=== PATIENT | female | born 1985 | race Caucasian/White ===

== ENCOUNTER → 2023-06-09 09:26 | Outpatient (REF) | payer OTHER, SELFPAY | LOC: PNTC 09:26 | PROVIDERS: ATTENDING PHYSICIAN Nurse Practitioner Family | DX: O36.80X0 Pregnancy with inconclusive fetal viability, not applicable or unspecified (principal) | CPT/HCPCS: 76801 ==

== ENCOUNTER → 2023-07-01 09:15 | Outpatient (REF) | payer OTHER, SELFPAY | LOC: PNTC 09:15 | PROVIDERS: ATTENDING PHYSICIAN Obstetrics & Gynecology | DX: Z36.0 Encounter for antenatal screening for chromosomal anomalies (principal) | CPT/HCPCS: 36415; 76801; 76813 ==

== ENCOUNTER → 2023-09-02 09:22 | Outpatient (REF) | payer OTHER, SELFPAY | LOC: PNTC 09:22 | PROVIDERS: ATTENDING PHYSICIAN Obstetrics & Gynecology | DX: O09.529 Supervision of elderly multigravida, unspecified trimester (principal) | CPT/HCPCS: 76811 ==

== ENCOUNTER → 2023-10-13 09:01 | Outpatient (REF) | payer OTHER, SELFPAY | LOC: PNTC 09:01 | PROVIDERS: ATTENDING PHYSICIAN Obstetrics & Gynecology | DX: O09.529 Supervision of elderly multigravida, unspecified trimester (principal) | CPT/HCPCS: 76816 ==

== ENCOUNTER → 2023-11-24 08:58 | Outpatient (REF) | payer OTHER, SELFPAY | LOC: PNTC 08:58 | PROVIDERS: ATTENDING PHYSICIAN Obstetrics & Gynecology | DX: O09.519 Supervision of elderly primigravida, unspecified trimester (principal) | CPT/HCPCS: 76816 ==

== ENCOUNTER → 2023-12-30 10:11 | Outpatient (REF) | payer OTHER, SELFPAY | LOC: PNTC 10:11 | PROVIDERS: ATTENDING PHYSICIAN Obstetrics & Gynecology | DX: O09.529 Supervision of elderly multigravida, unspecified trimester (principal); O36.8131 Decreased fetal movements, third trimester, fetus 1; O40.3XX0 Polyhydramnios, third trimester, not applicable or unspecified | CPT/HCPCS: 59025; 76815; 76816 ==

== ENCOUNTER → 2024-01-06 09:20 | Outpatient (REF) | payer OTHER, SELFPAY | LOC: PNTC 09:20 | PROVIDERS: ATTENDING PHYSICIAN Obstetrics & Gynecology | DX: O40.3XX0 Polyhydramnios, third trimester, not applicable or unspecified (principal) | CPT/HCPCS: 59025; 76815 ==

== ENCOUNTER 2024-01-07 19:22 | Inpatient (IN) | payer OTHER, SELFPAY ==
[2024-01-07 19:32] VITALS: BMI 40.4
[2024-01-07 20:15] VITALS: BP 122/76
[2024-01-07 20:15] LABS: % Basophils 0.1 % (0-2); % Eosinophils 0.7 % (0-6); % Immature Granulocytes 0.7 % (0-0.5); % Lymphocytes 18.6 % (20.5-51.1); % Monocytes 7.1 % (1.7-9.3); % Neutrophils 72.8 % (42.2-75.2); Absolute Eosinophils 0.1 10^3/uL (0-0.7); Absolute Immature Granulocytes 0.1 10^3/uL (0-0.05); Absolute Lymphocytes 1.6 10^3/uL (1.2-3.4); Absolute Monocytes 0.6 10^3/uL (0.1-0.6); Absolute Neutrophils 6.2 10^3/uL (1.4-6.5); Hematocrit 25.8 % (37.0-47.0); Hemoglobin 9.1 g/dL (12.0-16.0); Mean Corp Hgb Conc. 35.3 g/dL (33.0-37.0); Mean Corpuscular Hgb 28.8 pg (27.0-31.0); Mean Corpuscular Volume 81.6 fL (81.0-99.0); Mean Platelet Volume 10.5 fL (7.4-10.4); Nucleated Red Blood Cells % 0 %; Platelet Count 184 10^3/uL (130-400); Red Blood Cell Count 3.16 10^6/uL (4.20-5.40); Red Cell Dist. Width 12.9 % (11.5-14.5); White Blood Cell Count 8.6 10^3/uL (4.8-10.8)
[2024-01-07] MEDS: CYTOTEC 25 MICROGRAM VAG (22:56)
[2024-01-08] MEDS: CYTOTEC PO ×2 (02:13→19:12)
[2024-01-08] MEDS: CYTOTEC 50 MICROGRAM PO (03:04)
[2024-01-08] MEDS: LR 1000 IV (05:37)
[2024-01-08] MEDS: STADOL 1 MG IV (05:40)
[2024-01-08] MEDS: FENTANYL/BUPIVACAINE 100 EPIDURAL ×2 (09:05→16:13)
[2024-01-08] MEDS: SUBLIMAZE 100 MCG EPIDURAL (09:05)
[2024-01-08] MEDS: PITOCIN 30 UNITS/NSS 500 ML IV ×2 (09:25→16:38)
[2024-01-08] MEDS: MOTRIN 600 MG PO (18:04)
[2024-01-08] MEDS: TYLENOL 650 MG PO (20:58)
[2024-01-09] MEDS: TYLENOL 650 MG PO ×3 (01:45→19:33)
[2024-01-09] MEDS: MOTRIN 600 MG PO ×4 (01:45→21:04)
[2024-01-09] MEDS: SENOKOT-S 1 TABLET PO ×2 (01:45→19:33)
[2024-01-09 05:30] LABS: Hematocrit 22.7 % (37.0-47.0); Hemoglobin 8.1 g/dL (12.0-16.0)
[2024-01-09] MEDS: PRENATAL PLUS 1 TABLET PO (08:41)
[2024-01-09 11:52] LABS: Syphilis/T. pallidum Ab Reflex Negative (Negative)
[2024-01-09] MEDS: FEOSOL 325 MG PO (15:07)
[2024-01-10] MEDS: MOTRIN 600 MG PO (05:06)
[2024-01-10] MEDS: TYLENOL 650 MG PO ×2 (05:08→08:51)
[2024-01-10] MEDS: PRENATAL PLUS 1 TABLET PO (08:51)
[2024-01-10] MEDS: FEOSOL 325 MG PO (08:51)
[2024-01-10] MEDS: SENOKOT-S 1 TABLET PO (08:51)
== END 2024-01-10 12:00 | disposition home or self-care (01) | DRG 807 ==
LOC: LDRP 19:22
PROVIDERS: Student in an Organized Health Care Education/Training Program; ADMITTING PHYSICIAN Obstetrics & Gynecology
PROC: 10E0XZZ Delivery of Products of Conception, External Approach (ICD-10-PCS; 2024-01-08)
PROC: 3E033VJ Introduction of Other Hormone into Peripheral Vein, Percutaneous Approach (ICD-10-PCS; 2024-01-08)
PROC: 0KQM0ZZ Repair Perineum Muscle, Open Approach (ICD-10-PCS; 2024-01-08)
PROC: 3E0P7VZ Introduction of Hormone into Female Reproductive, Via Natural or Artificial Opening (ICD-10-PCS; 2024-01-08)
DX: O40.3XX0 Polyhydramnios, third trimester, not applicable or unspecified (principal); Z37.0 Single live birth; O99.214 Obesity complicating childbirth; O70.1 Second degree perineal laceration during delivery; Z3A.39 39 weeks gestation of pregnancy
CPT/HCPCS: 36415; 85014; 85018; 85025; 86780; 86850; 86900; 86901

== ENCOUNTER → 2024-09-21 12:02 | Outpatient (REF) | payer OTHER, SELFPAY | LOC: WDC 12:02 | PROVIDERS: ATTENDING PHYSICIAN Nurse Practitioner Adult Health | DX: Z12.31 Encounter for screening mammogram for malignant neoplasm of breast (principal) | CPT/HCPCS: 77063; 77067 ==

== ENCOUNTER → 2025-04-04 15:14 | Outpatient (REF) | payer OTHER, SELFPAY | LOC: HWRAD 15:14 | PROVIDERS: ATTENDING PHYSICIAN Nurse Practitioner Adult Health | DX: R09.A2 Foreign body sensation, throat (principal); E01.0 Iodine-deficiency related diffuse (endemic) goiter | CPT/HCPCS: 76536 ==